=== PATIENT | female | born 1965 | race Caucasian/White ===

== ENCOUNTER → 2016-07-31 | Outpatient (CLI) | payer OTHER ==
--- NOTE | 2016-07-31 12:38 | US ---
Ultrasound Pelvis Complete (Transabdominal and Endovaginal) Including Duplex/Doppler Imaging History: Uterine fibroids. D25.9. Technique: Transabdominal and endovaginal ultrasound images were obtained. Endovaginal images obtain ed for better evaluation of the uterine myometrium and adnexa. Duplex/Doppler imaging of adnexa. Findings: Uterus measures 7 x 10 x 10 cm. Endometrial thickness is 3 mm. In the fundus of the uterus there is a heterogenous intramural mass measuring 8.5 x 7.3 cm. Nabothian cysts in the cervix. Bilateral ovaries not well visualized. No free fluid in the pelvis. Impression: 1. Uterine leiomyoma measuring up to 8.5 x 7.3 cm. 2. No definite endometrial thickening. However, consider endometrial biopsy or MRI pelvis for further evaluation. 3. Ovaries not identified.
== END ==
LOC: CIMAGING 09:11
PROVIDERS: ATTEND Obstetrics & Gynecology
DX: D25.9 Leiomyoma of uterus, unspecified (principal)
CPT/HCPCS: 76856-PO

== ENCOUNTER → 2017-04-18 | Outpatient (CLI) | payer OTHER | LOC: CIMAGING 08:21 | PROVIDERS: ATTEND Obstetrics & Gynecology | DX: Z12.31 Encounter for screening mammogram for malignant neoplasm of breast (principal) | CPT/HCPCS: G0202 ==

== ENCOUNTER → 2017-05-06 | Outpatient (CLI) | payer OTHER | LOC: CIMAGING 18:12 | PROVIDERS: ATTEND Obstetrics & Gynecology | DX: Z30.431 Encounter for routine checking of intrauterine contraceptive device (principal) | CPT/HCPCS: 74000-PO ==

== ENCOUNTER → 2017-09-19 | Outpatient (CLI) | payer OTHER | LOC: CIMAGING 09:43 | PROVIDERS: ATTEND Obstetrics & Gynecology | DX: D25.9 Leiomyoma of uterus, unspecified (principal) | CPT/HCPCS: 76856-PO ==

== ENCOUNTER → 2018-04-23 | Outpatient (CLI) | payer OTHER | LOC: CIMAGING 10:14 | PROVIDERS: ATTEND Internal Medicine | DX: Z12.31 Encounter for screening mammogram for malignant neoplasm of breast (principal) ==

== ENCOUNTER → 2018-04-30 | Outpatient (CLI) | payer OTHER | LOC: CIMAGING 13:03 | PROVIDERS: ATTEND Internal Medicine | DX: D24.1 Benign neoplasm of right breast (principal) ==

== ENCOUNTER 2018-05-14 05:43 | Observation (INO) | payer OTHER ==
--- NOTE | 2018-05-13 19:03 | PDANEPAE ---
ANE History of Present Illness 52 yo with frequent menstration and uterine leiomyoma ANE Past Medical History - Cardiovascular History Hx Hypertension: Yes Hx Arrhythmias: No Hx Chest Pain: No Hx Coronary Artery / Peripheral Vascular Disease: No Hx CHF / Valvular Disease: No Hx Palpitations: No Cardiovascular History Comment: HEART MURMUR - RECENT ECHO - Pulmonary History Hx COPD: No Hx Asthma/Reactive Airway Disease: No Hx Recent Upper Respiratory Infection: No Hx Oxygen in Use at Home: No Hx Sleep Apnea: No Sleep Apnea Screening Result - Last Documented: Positive Pulmonary History Comment: OCCAS BRONCHITIS W/URIs - Neurologic History Hx Cerebrovascular Accident: No Hx Seizures: No Hx Dementia: No - Endocrine History Hx Diabetes: No Obesity: yes, severe - Renal History Hx Renal Disorders: No - Liver History Hx Hepatic Disorders: No - Neurological & Psychiatric Hx Hx Neurological and Psychiatric Disorders: Yes Neurological / Psychiatric History Comment: LEXAPRO - Cancer History Hx Cancer: No - Congenital Disorder History Hx Congenital Disorders: No - GI History GERD: no Hx Gastrointestinal Disorders: No Gastrointestinal History Comment: IBS - Other Health History Other Health History: CONNECTIVE TISSUE DISEASE - Chronic Pain History Chronic Pain: Yes (LEGS, KNEES) - Surgical History Prior Surgeries: NONE ANE Review of Systems Review of Systems: - Exercise capacity METS (RN): 4 METS - Systems Constitutional: Reports: no symptoms Cardiac: Reports: no symptoms Respiratory: Reports: no symptoms Gastrointestinal: Reports: no symptoms Genitourinary: Reports: no symptoms ANE Patient History - Allergies Allergies/Adverse Reactions: erythromycin base Allergy (Verified 04/25/18 15:13) Rash oxycodone [From Percocet] Allergy (Verified 04/25/18 15:15) Vomiting - Home Medications Home Medications: Acyclovir [Zovirax 400 mg (*)] 400 mg PO TID PRN 04/25/18 [Last Taken Unknown] Escitalopram Oxalate [Lexapro] 20 mg PO DAILY 04/25/18 [Last Taken Unknown] Hydroxychloroquine Sulfate [Plaquenil 200 mg (*)] 400 mg PO DAILY18 04/25/18 [ Last Taken Unknown] Losartan Potassium [Cozaar 50 mg (*)] 50 mg PO BID 04/25/18 [Last Taken Unknown] Simvastatin 20 mg PO HS 04/25/18 [Last Taken Unknown] ZOLPIDEM TARTRATE [Ambien CR 12.5 mg] 12.5 mg PO HS PRN 04/25/18 [Last Taken Unknown] amLODIPine BESYLATE [Amlodipine Besylate] 5 mg PO HS 04/25/18 [Last Taken Unknown] Herbals/Supplements -Info Only 04/28/18 [Last Taken Unknown] Ibuprofen 04/28/18 [Last Taken Unknown] Triamterene-Hctz 37.5-25 mg Tb 04/28/18 [Last Taken Unknown] - Anes Hx Anes Hx: no prior problems - Smoking Hx Smoking Status: Never smoked Marijuana use: No - Family Anes Hx Family Hx Anesthesia Complications: NEG ANE Labs/Vital Signs - Vital Signs Height: 171.45 cm Weight: 126.099 kg ANE Physical Exam - Airway Mallampati Score: Class 2 Mouth exam: normal dental/mouth exam - Pulmonary Pulmonary: no respiratory distress, clear to auscultation - Cardiovascular Cardiovascular: regular rate and rhythym - ASA Status ASA Status: III ANE Anesthesia Plan Anesthesia Plan: general endotracheal anesthesia
[2018-05-14] MEDS ORDERED: LIDOCAINE 1% 2 ML INJ ID PRN (05:58)
[2018-05-14] MEDS ORDERED: LR 1,000 ML IV ONE (05:58)
--- NOTE | 2018-05-14 06:02 | PDGENHP ---
History and Physical History and Physical: Assessment and Plan: 1. Intramural leiomyoma of uterus Humaira has symptomatic uterine fibroids causing irregular, and at times, heavy bleeding. Her endometrial biopsy was unremarkable. We reviewed all conservative and surgical options. At the end of our discussion she is interested in surgical removal. This will be a robotic assisted total laparoscopic hysterectomy. She would benefit from a uterosacral ligament colpopexy given her anterior wall prolapse. 2. Metrorrhagia Subjective: Patient ID: Humaira Stephenson is a 52 y.o. female who presents to [facility] for surgical consultation. CHRIS Gray is a 52-year-old para 1 woman having using vasectomy for contraception. She presents with postmenopausal bleeding which appears to be secondary to a uterine fibroid. She has a Mirena IUD which has controlled the flow. Dr. Park performed a hysteroscopy. The results showed a benign polyp and disordered proliferative endometrium. She was noted to have a 5 cm anterior fundal fibroid distorting the cavity. Approximately half the fibroid was within the cavity. A pelvic ultrasound revealed an enlarged uterus measuring 12 x 9 x 8 cm. She has several fibroids including a 6 cm anterior right fundal a 5 cm right mid myometrium and a 2 cm posterior fundal. Lorenza is extremely tired of the heavy and irregular bleeding. Given the size of the uterus Dr. Park referred her here for for a minimally invasive approach. PastMedicalHistory Past Medical History: Diagnosis Date Allergy to pollen Connective tissue disease (HC code) Hypertension Raynaud's syndrome PastSurgicalHistory Past Surgical History: Procedure Laterality Date COLONOSCOPY TONSILLECTOMY WISDOM TOOTH EXTRACTION CURRENT MEDICATIONS: Current Outpatient Medications Medication Sig amLODIPine (NORVASC) 5 mg tablet Take 5 mg by mouth. docosahexanoic acid/epa (FISH OIL PO) ergocalciferol, vitamin D2, (VITAMIN D PO) hydroxychloroquine (PLAQUENIL) 200 mg tablet Take 400 mg by mouth. losartan (COZAAR) 50 mg tablet Take 50 mg by mouth. multivitamin (HEXAVITAMIN) per tablet Take 1 tablet by mouth daily. simvastatin (ZOCOR) 20 mg tablet triamterene-HCTZ 37.5-25 mg per capsule ubidecarenone (COQ-10 PO) zolpidem (AMBIEN CR) 12.5 mg CR tablet Take 12.5 mg by mouth. No current facility-administered medications for this visit. ALLERGIES: Erythromycin and [place] I have reviewed, verified and agree with the past medical, surgical, , family, social and ROS history as documented by the RN today. Objective: Vital Signs: Visit Vitals BP (!) 152/94 Pulse 87 Temp 36.8 C (98.3 F) (Temporal) Resp 16 Ht 1.715 m (5' 7.5") Wt (!) 126.9 kg (279 lb 12.8 oz) SpO2 95% BMI 43.18 kg/m Physical Exam Gen: This is an alert, well developed woman in no distress. Neuro: She moves all extremities. Psych: She is appropriate, oriented, with normal affect. Neck: No thyroid enlargement, adenopathy, or tenderness. Lungs: Clear to ascultation, no wheezes or rales. Heart: Regular rate and rhythm without obvious murmurs. Abdomen: Soft, non-tender, without guarding, rebound, or masses. Extremities: No edema or cyanosis. Pelvic: Normal external genitalia. Non-gaping introitus, vagina without discharge, adequately estrogenized. Cervix without lesions or discharge. Uterus enlarged consistent with a 14-week sized uterus, non-tender. Adnexa non -tender without enlargement. She has second-degree anterior wall prolapse. DATA: I have reviewed the pertinent medical records. TIME/COMMUNICATION: I personally spent a total of 40 minutes. Of that 30 minutes was counseling/ coordination of patient's care. See my note above for details. Kit Plascencia MD Board Certified Female Pelvic Medicine and Reconstructive Surgery Director of Minimally Invasive Gynecologic Surgery, [facility] Surgeon in Minimally Invasive Gynecologic Surgery [facility] Surgeon in Robotic Surgery
[2018-05-14] MEDS ORDERED: ACETAMINOPHEN 500 MG TAB PO ONE (06:04)
[2018-05-14] MEDS ORDERED: GABAPENTIN 300 MG CAP PO ONE (06:04)
[2018-05-14] MEDS ORDERED: ceFAZolin 2 GM/DEXTROSE 100 ML IV ONE (06:04)
[2018-05-14] MEDS ORDERED: PHENAZOPYRIDINE HCL 200 MG TAB PO ONE (06:04)
[2018-05-14] MEDS ORDERED: fentaNYL 250 MCG/5 ML INJ ONE (06:51)
[2018-05-14] MEDS ORDERED: PROPOFOL/EMULSION 500 MG/50 ML BOTTLE IV ONE (06:51)
[2018-05-14] MEDS ORDERED: LIDOCAINE 2% 100 MG/5 ML SYR ONE (06:51)
[2018-05-14] MEDS ORDERED: ROCURONIUM 50 MG/5 ML VIAL ONE (06:55)
[2018-05-14] MEDS ORDERED: ONDANSETRON 4 MG/2 ML VIAL ONE (06:56)
[2018-05-14] MEDS ORDERED: DEXAMETHASONE 4 MG/ML VIAL ONE (06:56)
[2018-05-14] MEDS ORDERED: BUPIVACAINE/EPI 0.25% 30 ML SDV ONE (07:12)
--- NOTE | 2018-05-14 07:12 | PDHPUP ---
History & Physical Update H&P update statement: This history and physical update is based on an assessment of the patient which was completed after admission or registration (within 24 hours), but prior to the surgery/procedure. H&P update: H&P reviewed & patient examined, no change in patient's condition since H&P completed
[2018-05-14] MEDS ORDERED: MIDAZOLAM 2 MG/2 ML VIAL ONE (07:15)
--- NOTE | 2018-05-14 08:09 | POSTANESTH ---
Post Anesthetic Evaluation Cardiovascular Status: Normal, Stable Respiratory Status: Normal, Stable Level of Consciousness/Mental Status: Mildly Sleepy, Arousable Pain Control: Adequate, Prn Tx Ordered Nausea/Vomiting Control: Adequate, Prn Tx Ordered Complications Possibly Related to Anesthesia: None Noted
[2018-05-14] MEDS ORDERED: PROMETHAZINE HCL 25 MG/ML INJ IVP PRN ×2 (08:43→09:36)
[2018-05-14] MEDS ORDERED: MEPERIDINE 25 MG/0.5 ML AMP IVP PRN (08:43)
[2018-05-14] MEDS ORDERED: fentaNYL 100 MCG/2 ML INJ IVP PRN (08:43)
[2018-05-14] MEDS ORDERED: NALOXONE HCL 0.4 MG/ML INJ IVP PRN (08:43)
[2018-05-14] MEDS ORDERED: LABETALOL HCL 5 MG/ML 20 ML MDV IVP PRN (08:43)
[2018-05-14] MEDS ORDERED: ALBUTEROL 3 ML DEYVIAL IH PRN (08:43)
[2018-05-14] MEDS ORDERED: NEOSTIGMINE METHYLSULFATE 5 MG/5 ML SYR ONE (09:05)
--- NOTE | 2018-05-14 09:35 | POSTOPPROG ---
Post Op Note Date of Operation: 05/14/18 Surgeon: Kit Plascencia Location Manager: Tiffanie Monzon Anesthesia: GET(General Endotracheal) Pre-op Diagnosis: Fibroids Post-op Diagnosis: Same Procedure: Robotic hyst,BSO, US lig colpopexy, ureterolysis, cysto Inf/Abcess present in the surg proc area at time of surgery?: No EBL: Minimal Complications: None
[2018-05-14] MEDS ORDERED: ONDANSETRON DISINTEGRATING 4 MG TAB PO PRN (09:36)
[2018-05-14] MEDS ORDERED: ONDANSETRON 4 MG/2 ML VIAL IVP PRN (09:36)
[2018-05-14] MEDS ORDERED: HYDROmorphONE/DILAUDID 1 MG/ML INJ IVP PRN (09:36)
[2018-05-14] MEDS ORDERED: KETOROLAC 30 MG/1 ML SDV ONE (09:45)
[2018-05-14] MEDS ORDERED: HYDROmorphONE/DILAUDID 2 MG/ML INJ ONE (09:45)
[2018-05-14] MEDS: HYDROmorphONE/DILAUDID 2 MG/ML INJ IVP PRN ×2 (09:47→10:11)
[2018-05-14] MEDS ORDERED: LR 1,000 ML IV SCH (10:00)
[2018-05-14] MEDS: KETOROLAC 30 MG/1 ML SDV IVP SCH ×2 (10:10→17:11)
--- NOTE | 2018-05-14 12:50 | GOP ---
DATE OF OPERATION: 05/14/2018 SURGEON: Kit Plascencia MD FACILITIES MECHANICAL DESIGN ENGINEER: Tiffanie Monzon CFA. ANESTHESIA: General. PREOPERATIVE DIAGNOSIS: 1. Uterine fibroids. 2. Menorrhagia. 3. Uterine prolapse. POSTOPERATIVE DIAGNOSIS: 1. Uterine fibroids. 2. Menorrhagia. 3. Uterine prolapse. PROCEDURE PERFORMED: 1. Robotic-assisted total laparoscopic hysterectomy, bilateral salpingo-oophorectomy. 2. Bilateral uterosacral ligament colpopexy. 3. Bilateral ureterolysis. 4. Cystoscopy. FINDINGS: SPECIMENS: Uterus bilateral tubes, and ovaries. ESTIMATED BLOOD LOSS: Scant. DESCRIPTION OF PROCEDURE: The patient was taken to the operating room where she was identified. Gen eral anesthesia was administered and found to be adequate. She was placed in the lithotomy position and prepared and draped in normal sterile fashion. A Saldana catheter was placed in her bladder. A VC are uterine manipulator was placed into the endometrial cavity and sutured to the cervix. A 1 cm infraumbilical incision was made with a scalpel. The Veress needle with the CO2 gas flowing w as advanced into the peritoneal cavity. The abdomen was then insufflated with carbon dioxide gas. T he 12 mm trocar followed by the laparoscope were then inserted. The upper abdomen was unremarkable. Two lateral ports were placed on either side under direct visualization. She then was placed in [place] position and the da [place] robot docked on the left side. The instruments were then eric t into the abdominal cavity under direct visualization. Some bowel adhesions were taken down sharply. The left round ligament was divided. The anterior lip of the broad ligament was then incised towards the bifurcation of the left common iliac vessels. A window was created in the posterior leaf anterior to the left ureter to skeletonize the infundibulope lvic vessels. They were then cauterized and transected. The anterior leaf of the broad ligament was then incised over the left uterine vessels and across the cervix. The bladder was gently dissected off the cervix and upper vagina. Both ureters were pushed close to the cervix and uterine arteries g iven her bulky fibroid uterus. As a result, a bilateral ureterolysis was required to safely separate the ureters from the uterine arteries without injury when ligating the uterine arteries. The perito neum of the pelvic brims was incised. The ureters were gently dissected free and lateralized off the overlying peritoneum and the uterine arteries from the pelvic brim all the way down to the bladder. Once this was accomplished, the uterine vessels on the left were then cauterized and transected. A similar procedure was performed on the patient's right side. A circumferential colpotomy incision wa s then made with the hot anisa and the specimen removed through the vagina. This required some morc ellation by myself to be able to remove it through the vagina. The vaginal cuff was then closed with a running suture of 0 V-Loc 180. A bilateral uterosacral ligam ent colpopexy was performed by attaching the lateral aspects of the vaginal cuff to the ipsilateral u terosacral ligaments near the coccygeal-sacrospinous ligament complexes. The pelvis was then irrigat ed with sterile saline, and hemostasis was present. The robot was then undocked. The fascia was closed with 0 Vicryl, the skin with 4-0 Monocryl. Cystoscopy was then performed. Both ureters had vigorous jets of urine. No evidence of bladder nor urethral injury seen. The patient had several lacerations in the vagina as a result of the removal o f the uterus. These were reapproximated with [id number] sutures of 2-0 Vicryl. Vaginal packing was then placed. Anesthesia was reversed and the patient was taken to the PACU awake, in stable con dition. COMPLICATIONS: None. DISPOSITION: Patient stable to PACU. /[id number]/MODL
[2018-05-14] MEDS: HYDROCODONE/APAP 5/325 TAB PO PRN ×3 (14:09→22:59)
[2018-05-14] MEDS: SIMETHICONE 80 MG TAB CHEW PO SCH ×3 (14:09→21:47)
[2018-05-14] MEDS ORDERED: amLODIPine BESYLATE 5 MG TAB PO SCH (21:00)
[2018-05-14] MEDS: DOCUSATE SODIUM 100 MG CAP PO SCH ×2 (21:47→21:51)
[2018-05-14] MEDS: LOSARTAN POTASSIUM 50 MG TAB PO SCH (21:50)
[2018-05-14] MEDS ORDERED: ZOLPIDEM TARTRATE 5 MG TAB PO PRN (23:04)
[2018-05-15] MEDS: HYDROCODONE/APAP 5/325 TAB PO PRN ×2 (04:08→08:44)
[2018-05-15 06:55] LABS: PLATELET COUNT 220 10^3/uL (150-400)
[2018-05-15] MEDS: SIMETHICONE 80 MG TAB CHEW PO SCH (08:43)
[2018-05-15] MEDS: DOCUSATE SODIUM 100 MG CAP PO SCH (08:45)
[2018-05-15 08:53] VITALS: BP 96/56
[2018-05-15] MEDS ORDERED: ESCITALOPRAM OXALATE 10 MG TAB PO SCH (09:00)
[2018-05-15] MEDS ORDERED: TRIAMTERENE/HCTZ 37.5/25 1 EACH CAP PO SCH (09:00)
--- NOTE | 2018-05-15 10:17 | GDS ---
DISCHARGE DIAGNOSES: 1. Uterine fibroids. 2. Menorrhagia. PROCEDURES PERFORMED: 1. Robotic-assisted total laparoscopic hysterectomy, bilateral salpingo-oophorectomy. 2. Uterosacral ligament colpopexy. 3. Ureterolysis. 4. Cystoscopy. HISTORY/HOSPITAL COURSE: The patient is a 52-year-old woman with symptomatic uterine fibroids. She was taken to the operating room on 05/14/2018, where she underwent the above-mentioned procedures wit hout complications. Postoperatively, her course was uneventful. The morning after surgery, she was ambulating, voiding, and tolerating a general diet. She was discharged home on [place] and ibuprofen for pain. She is to ivory rodriguez up in the office 2 weeks after discharge. /[id number]/MODL
[2018-05-15] MEDS: LOSARTAN POTASSIUM 50 MG TAB PO SCH (10:45)
== END 2018-05-15 11:07 | disposition home or self-care (01) ==
LOC: F3E 05:43 → FOB 11:02
PROVIDERS: ADMIT Obstetrics & Gynecology; ATTEND Obstetrics & Gynecology
DX: D25.1 Intramural leiomyoma of uterus (principal); N92.0 Excessive and frequent menstruation with regular cycle; N81.4 Uterovaginal prolapse, unspecified; R01.1 Cardiac murmur, unspecified
CPT/HCPCS: 57425; 58571; G0378; J0690; J1100; J1170; J1885; J2001; J2250; J2405; J2704; J2710; J3010